=== PATIENT | female | born 1940 ===

== ENCOUNTER → 2016-10-04 | Outpatient (CLI) | payer MEDICARE ==
[~2016-10-04] MED LIST: SODIUM CHLORIDE 0.9% 250 ML in EMPTY BAG 1 BAG IV PRN; SODIUM CHLORIDE 0.9% 500 ML in EMPTY BAG 1 BAG IV PRN; ZOLEDRONIC ACID 5 MG in SODIUM CHLORIDE 0.9% 100 ML IV NR
[2016-10-04 15:04] VITALS: BP 150/72; PULSE 77; RESP 16; TEMP 97.8
== END | disposition home or self-care (01) ==
LOC: PROCWHC3 14:11
PROVIDERS: ATTEND Internal Medicine Endocrinology, Diabetes & Metabolism
DX: M81.0 Age-related osteoporosis without current pathological fracture (principal)
CPT/HCPCS: 96365; J3489

== ENCOUNTER → 2018-09-25 | Outpatient (CLI) | payer MEDICARE ==
[~2018-09-25] MED LIST changes: +DENOSUMAB 60 MG/ML 1 ML SYRINGE SQ ONE; -SODIUM CHLORIDE 0.9% 250 ML in EMPTY BAG 1 BAG IV PRN; -SODIUM CHLORIDE 0.9% 500 ML in EMPTY BAG 1 BAG IV PRN; -ZOLEDRONIC ACID 5 MG in SODIUM CHLORIDE 0.9% 100 ML IV NR
[2018-09-25 15:09] VITALS: BP 133/84; PULSE 86; RESP 16; TEMP 97.5
== END ==
LOC: PROCWHC3 14:50
PROVIDERS: ATTEND Internal Medicine Endocrinology, Diabetes & Metabolism
DX: M81.0 Age-related osteoporosis without current pathological fracture (principal)
CPT/HCPCS: 96372; J0897

== ENCOUNTER → 2019-04-12 | Outpatient (CLI) | payer MEDICARE ==
--- NOTE | 2019-04-18 16:56 | PE ---
Nuclear medicine PET/CT HISTORY: Malignant neoplasm of body of stomach, subsequent No comparisons Patient received 11.8 mCi F-18 FDG intravenously in delayed scanning was performed from the skull bas e to the mid thighs. Localization and attenuation correction CT scan was performed. Neck and chest: There is no evident cervical adenopathy, no supraclavicular adenopathy or suspicious hypermetabolic uptake. There is no evident lung mass. No pleural pericardial effusion. Heart is enlar ged. Central venous catheter is present, port is present in left pectoral region, left jugular approa ch, distal tip of the catheter in the superior vena cava. Prominent pulmonary artery could be due to pulmonary artery hypertension. Mitral annular calcification suspected. ABDOMEN: There is a biliary stent in place. Distal stomach stent is also present. No suspicious hyper metabolic uptake is evident however. No retroperitoneal adenopathy or ascites. Low dense focus associ ated with the inferior margin of the right lobe of the liver measures 2.8 cm and may represent a cyst . Some dependent high attenuation present within the gallbladder suggests cholelithiasis. Pneumobilia is present. Osseous structures show no suspicious uptake. Sacroiliac joints show sclerosis, vacuum phenomenon and possibly due to stress change. Facet arthropathy changes are present in the lower lumbar spine. IMPRESSION: No hypermetabolic uptake correlating patient's gastric carcinoma. Postprocedural changes as described.
== END | disposition home or self-care (01) ==
LOC: RADPETMAIN 13:01
PROVIDERS: ATTEND Internal Medicine Medical Oncology
DX: C16.2 Malignant neoplasm of body of stomach (principal); Z98.890 Other specified postprocedural states
CPT/HCPCS: 78815; A9552

== ENCOUNTER → 2019-09-05 | Outpatient (CLI) | payer MEDICARE ==
--- NOTE | 2019-09-08 09:37 | PE ---
Nuclear medicine PET/CT HISTORY: Gastric carcinoma, subsequent, C 16.2 Patient received 12.1 mCi F-18 FDG intravenously in delayed scanning was performed from the skull bas e to the mid thighs. Localization and attenuation correction CT scan was performed. Correlation to prior nuclear medicine PET/CT 04/22/2019 neck And chest: There is no evident cervical or supraclavicular adenopathy. Left pectoral region cent ral venous port a cath is present coursing via left internal jugular vein approach with the distal ti p in the superior vena cava. Prominence of the pulmonary artery may be due to pulmonary artery hypert ension. Suspect there is mitral annular calcification present. No pleural or pericardial effusion. No mediastinal, axillary, or hilar adenopathy. Mosaic attenuation pattern suspected within the lungs. ABDOMEN: There is a stent within the distal stomach, gastric wall thickening is indeterminate. Biliar y stent is also in place. There is some pneumobilia present centrally. Cystic focus is present in the inferior aspect of the right lobe of the liver. Dependent high attenuation within the gallbladder li adiel due to cholelithiasis. No suspicious hypermetabolic uptake is present. There is increased attenu ation within the peripancreatic fat likely inflammatory. There is no evident ascites or retroperitone al adenopathy. Umbilical hernia contains fat. Osseous structures show sclerotic density at the pubic symphysis and also at the sacroiliac joints. A rthropathy changes are present within the shoulders. IMPRESSION: Postprocedural changes. No suspicious hypermetabolic uptake. Cholelithiasis. Indeterminat e gastric wall thickening. Additional findings above are similar to prior exam.
== END | disposition home or self-care (01) ==
LOC: RADPETMAIN 08:38
PROVIDERS: ATTEND Internal Medicine Medical Oncology
DX: C16.2 Malignant neoplasm of body of stomach (principal); Z98.890 Other specified postprocedural states; K80.20 Calculus of gallbladder without cholecystitis without obstruction
CPT/HCPCS: 78815; A9552